=== PATIENT | male | born 1990 | race African-American/Black ===

== ENCOUNTER → 2023-09-10 | Emergency (ER) | payer OTHER, SELFPAY ==
[~2023-09-10] MED LIST: CEFTRIAXONE 1000 MG/VIAL ONE; DOXYCYCLINE 100 MG CAP PO ONE; KETOROLAC 30 MG/ML INJ ONE; LIDOCAINE 1% MPF 2 ML AMPULE ONE; ONDANSETRON 4 MG (ODT) TAB ONE; metroNIDAZOLE 500 MG TABLET ONE
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
[2023-09-11 00:47] LABS: Specific Gravity 1.028 (1.005-1.030); Urine Bacteria None Seen /HPF (<20); Urine Bilirubin NEGATIVE (Negative); Urine Blood Negative (Negative); Urine Clarity Extremely Turbid (Clear); Urine Color Yellow (Yellow); Urine Glucose NEGATIVE (Negative); Urine Mucus Slight /HPF (None Seen); Urine Protein 1+ (Negative); Urine RBC <5 /HPF (None Seen); Urine Urobilinogen 1+ (Normal); Urine pH 5.5 (5.0-7.0)
--- NOTE | 2023-09-11 02:04 | EDPHYS ---
Physician Documentation [facility] Name: Amando Prakash Age: 32 yrs Sex: Male : 1990 Arrival Date: 09/10/2023 Time: 23:39 Bed 11 Private MD: ED Physician Paolo Marie HPI: 09/11 00:13 This 32 yrs old Black Male presents to ER via Unassigned with complaints of Penile sp4 Discharge, Lump under arm. 02:00 82-year-old male presents with discharge from the penis for the last 4 days. Patient sp4 reports that the whitish discharge he does not recall having unprotected sexual intercourse. Patient also has small pimple under the right armpit. . Historical: - Allergies: 00:17 No Known Allergies; kl - Home Meds: 00:17 Biktarvy oral 1 tab daily for HIV infection [Active]; kl - PMHx: 00:17 HIV positive; kl - PSHx: 00:17 None; kl - Immunization history:: Adult Immunizations up to date. - Social history:: Smoking status: Patient denies any tobacco usage or history of. - Family history:: not pertinent. ROS: 02:00 Constitutional: Negative for fever, chills, and weight loss, positive penile discharge, sp4 positive pimple to the right armpit 02:00 All other systems are negative, Exam: 02:00 Constitutional: This is a well developed, well nourished patient who is awake, alert, sp4 and in no acute distress. Head/Face: Normocephalic, atraumatic. Eyes: Pupils equal round and reactive to light, extra-ocular motions intact. Lids and lashes normal. Conjunctiva and sclera are not injected. Cornea within normal limits. Periorbital areas with no swelling, redness, or edema. ENT: Nares patent. No nasal discharge, no septal abnormalities noted. Tympanic membranes are normal and external auditory canals are clear. Oropharynx with no redness, swelling, or masses, exudates, or evidence of obstruction, uvula midline. Mucous membranes moist. Neck: Trachea midline, no thyromegaly or masses palpated, and no cervical lymphadenopathy. Supple, full range of motion without nuchal rigidity, or vertebral point tenderness. Chest/axilla: Normal chest wall appearance and motion. Nontender with no deformity. No lesions are appreciated. Moderate-sized pimple under the right armpit Cardiovascular: Regular rate and rhythm with a normal S1 and S2. No gallops, murmurs, or rubs. Normal PMI, no JVD. No pulse deficits. Respiratory: Lungs have equal breath sounds bilaterally, clear to auscultation and percussion. No rales, rhonchi or wheezes noted. No increased work of breathing, no retractions or nasal flaring. Abdomen/GI: Soft, non-tender, with normal bowel sounds. No distension or tympany. No guarding or rebound. No evidence of tenderness throughout. Back: No spinal tenderness. No costovertebral tenderness. Male : Normal genitalia with no discharge or lesions. Circumcised male with a yellowish urethral discharge Skin: Warm, dry with normal turgor. Normal color with no rashes, no lesions, and no evidence of cellulitis. MS/ Extremity: Pulses equal, no cyanosis. Neurovascular intact. Full, normal range of motion. Neuro: Awake and alert, GCS 15, oriented to person, place, time, and situation. Cranial nerves II-XII grossly intact. Motor strength 5/5 in all extremities. Sensory grossly intact. Psych: Awake, alert, with orientation to person, place and time. Behavior, mood, and affect are within normal limits Vital Signs: 00:12 BP 149 / 100; Pulse 77; Resp 16; Pulse Ox 100% on R/A; Weight 73.03 kg; Height 5 ft. 8 kl in. ; Pain 0/10; 00:12 Body Mass Index 24.48 (73.03 kg, 172.72 cm) kl 00:12 Pain Scale: Adult kl MDM: 00:14 Patient medically screened. sp4 02:00 Differential diagnosis: UTI, urethritis, STD. Data reviewed: vital signs, nurses notes, sp4 lab test result(s), urinalysis, bacteruria. ED course: Was given IM Rocephin, doxycycline and Flagyl. Will discharge her with doxycycline and Flagyl.. 09/11 00:13 Order name: Urinalysis W/Microscopic; Complete Time: 01:52 sp4 09/11 01:15 Order name: Urine Culture EDMS Administered Medications: 02:41 Drug: Rocephin (cefTRIAXone) IM 1 grams IM once Route: IM; Site: left ventrogluteal; vc1 02:58 Follow up: Response: No adverse reaction vc1 02:41 Drug: Doxycycline PO 100 mg PO once Route: PO; vc1 02:58 Follow up: Response: No adverse reaction vc1 02:41 Drug: metroNIDAZOLE PO 500 mg PO once Route: PO; vc1 02:58 Follow up: Response: No adverse reaction vc1 02:41 Drug: Ondansetron PO 4 mg PO once Route: PO; vc1 02:58 Follow up: Response: No adverse reaction vc1 02:41 Drug: Ketorolac IM 30 mg IM once Route: IM; Site: right gluteus; vc1 02:58 Follow up: Response: No adverse reaction vc1 Disposition Summary: 09/11/23 02:03 Discharge Ordered Notes: Abstain from sexual intercourse for the next 2 weeks Location: Home sp4 Problem: new sp4 Symptoms: have improved sp4 Condition: Stable sp4 Diagnosis - Nonspecific urethritis sp4 - UTI/ Urinary tract infection, site not specified sp4 Followup: sp4 - With: Private Physician - When: 7 - 10 days - Reason: Recheck today's complaints Discharge Instructions: - Discharge Summary Sheet sp4 - Urethritis, Adult sp4 Forms: - Patient Portal Instructions sp4 Prescriptions: - Flagyl 500 mg Oral Tablet - take 1 tablet ORAL route every 8 hours for 10 days; 30 tablet; Refills: 0, sp4 Product Selection Permitted - Doxycycline Monohydrate 100 mg Oral Tablet - take 1 tablet ORAL route every 12 hours for 10 days; 20 tablet; Refills: 0, sp4 Product Selection Permitted Signatures: Dispatcher [employer] Otilia Jaramillo, RN Macey Coelho RN RN vc1 Paolo Marie MD MD sp4
--- NOTE | 2023-09-11 02:04 | ER ---
Nurse's Notes [facility] Name: Amando Prakash Age: 32 yrs Sex: Male : 1990 Arrival Date: 09/10/2023 Time: 23:39 Bed 11 Private MD: Diagnosis: Nonspecific urethritis;UTI/ Urinary tract infection, site not specified Presentation: 09/11 00:12 Chief complaint: Patient states: unprotected sex x 1 month prior reports while penile kl discharge began x 4 days ago denies urinary symptoms or pain. Coronavirus screen: Vaccine status: Patient reports receiving the 2nd dose of the covid vaccine. Ebola Screen: Patient negative for fever greater than or equal to 101.5 degrees Fahrenheit, and additional compatible Ebola Virus Disease symptoms. Initial Sepsis Screen: Does the patient meet any 2 criteria? No. Patient's initial sepsis screen is negative. Does the patient have a suspected source of infection? No. Patient's initial sepsis screen is negative. Risk Assessment: Do you want to hurt yourself or someone else? Patient reports no desire to harm self or others. Onset of symptoms was August 29, 2023. 00:12 Method Of Arrival: Ambulatory kl 00:12 Acuity: JOI 4 kl Triage Assessment: 00:17 General: Appears in no apparent distress. comfortable, Behavior is calm, cooperative. kl Pain: Denies pain. Historical: - Allergies: 00:17 No Known Allergies; kl - Home Meds: 00:17 Biktarvy oral 1 tab daily for HIV infection [Active]; kl - PMHx: 00:17 HIV positive; kl - PSHx: 00:17 None; kl - Immunization history:: Adult Immunizations up to date. - Social history:: Smoking status: Patient denies any tobacco usage or history of. - Family history:: not pertinent. Screenin:[facility] ED Fall Risk Assessment (Adult) History of falling in the last 3 months, vc1 including since admission No falls in past 3 months (0 pts) Confusion or Disorientation No (0 pts) Intoxicated or Sedated No (0 pts) Impaired Gait No (0 pts) Mobility Assist Device Used No (0 pt) Altered Elimination No (0 pt) Score/Fall Risk Level 0 - 2 = Low Risk Oriented to surroundings, Maintained a safe environment, Educated pt \T\ family on fall prevention, incl call for assistance when getting out of bed. Abuse screen: Denies threats or abuse. Nutritional screening: No deficits noted. Tuberculosis screening: No symptoms or risk factors identified. Vital Signs: 00:12 BP 149 / 100; Pulse 77; Resp 16; Pulse Ox 100% on R/A; Weight 73.03 kg; Height 5 ft. 8 kl in. ; Pain 0/10; 00:12 Body Mass Index 24.48 (73.03 kg, 172.72 cm) 00:12 Pain Scale: Adult ED Course: 09/10 23:45 Patient arrived in ED. 09/11 00:13 Paolo Marie MD is Attending Physician. sp4 00:16 Triage completed. kl 00:30 Urinalysis W/Microscopic Sent. kl 01:00 Arm band placed on right wrist. vc1 03:00 No provider procedures requiring assistance completed. Patient did not have IV access vc1 during this emergency room visit. 03:00 Provided Education on: safe sex, finish all antibiotics. vc1 Administered Medications: 02:41 Drug: Rocephin (cefTRIAXone) IM 1 grams IM once Route: IM; Site: left ventrogluteal; vc1 02:58 Follow up: Response: No adverse reaction vc1 02:41 Drug: Doxycycline PO 100 mg PO once Route: PO; vc1 02:58 Follow up: Response: No adverse reaction vc1 02:41 Drug: metroNIDAZOLE PO 500 mg PO once Route: PO; vc1 02:58 Follow up: Response: No adverse reaction vc1 02:41 Drug: Ondansetron PO 4 mg PO once Route: PO; vc1 02:58 Follow up: Response: No adverse reaction vc1 02:41 Drug: Ketorolac IM 30 mg IM once Route: IM; Site: right gluteus; vc1 02:58 Follow up: Response: No adverse reaction vc1 Medication: 03:00 VIS not applicable for this client. vc1 Outcome: 02:03 Discharge ordered by . sp4 03:00 Discharged to home ambulatory, vc1 03:00 Condition: good 03:00 Discharge instructions given to patient, Instructed on discharge instructions, follow up and referral plans. medication usage, Demonstrated understanding of instructions, follow-up care, medications, Prescriptions given X 2, 03:01 Patient left the ED. vc1 Signatures: Otilia Prakash RN RN Ruthy Emanuel Vanessa, RN RN vc1 Paolo Marie MD MD sp4
[2023-09-11 06:06] VITALS: BP 149/100; O2SAT 100
== END ==
LOC: ER 23:39
DX: N34.1 Nonspecific urethritis (principal); N39.0 Urinary tract infection, site not specified; Z21 Asymptomatic human immunodeficiency virus [HIV] infection status

== ENCOUNTER → 2023-11-04 | Emergency (ER) | payer OTHER ==
[~2023-11-04] MED LIST changes: -CEFTRIAXONE 1000 MG/VIAL ONE; -DOXYCYCLINE 100 MG CAP PO ONE; -KETOROLAC 30 MG/ML INJ ONE; -LIDOCAINE 1% MPF 2 ML AMPULE ONE; +LIDOCAINE 2% W/EPI 1:200,000 MPF 20 ML VIAL IM ONE; -ONDANSETRON 4 MG (ODT) TAB ONE; -metroNIDAZOLE 500 MG TABLET ONE
--- OUTSIDE RECORDS SUMMARY | 2023-11-04 09:34 | XMS REPORT | Continuity of Care Document ---
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 7.2.727879_[id number] [facility]
--- NOTE | 2023-11-04 10:22 | ER ---
Nurse's Notes [facility] Name: Amando Prakash Age: 32 yrs Sex: Male : 1990 Arrival Date: 11/04/2023 Time: 09:30 Bed 12 Private MD: Diagnosis: Cutaneous abscess of right axilla Presentation: 11/03 09:49 Chief complaint: Patient states: Abscess to R armpit area for 3 days, just getting ll1 worse. No fever or drainage. Coronavirus screen: Client denies travel out of the [place] in the last 14 days. At this time, the client does not indicate any symptoms associated with coronavirus-19. Ebola Screen: Patient denies travel to an Ebola-affected area in the 21 days before illness onset. Initial Sepsis Screen: Does the patient meet any 2 criteria? No. Patient's initial sepsis screen is negative. Does the patient have a suspected source of infection? No. Patient's initial sepsis screen is negative. Risk Assessment: Do you want to hurt yourself or someone else? Patient reports no desire to harm self or others. Onset of symptoms was November 02, 2023. 09:49 Method Of Arrival: Ambulatory ll1 09:49 Acuity: JOI 3 ll1 Historical: - Allergies: 09:49 No Known Allergies; ll1 - PMHx: 09:49 HIV positive; ll1 - Immunization history:: Adult Immunizations up to date. - Social history:: Smoking status: Patient denies any tobacco usage or history of. - Family history:: not pertinent. - Hospitalizations: : No recent hospitalization is reported. Screenin:01 [facility] ED Fall Risk Assessment (Adult) History of falling in the last 3 months, ll1 including since admission No falls in past 3 months (0 pts) Confusion or Disorientation No (0 pts) Intoxicated or Sedated No (0 pts) Impaired Gait No (0 pts) Mobility Assist Device Used No (0 pt) Altered Elimination No (0 pt) Score/Fall Risk Level 0 - 2 = Low Risk Maintained a safe environment, Hourly rounding (assess needs \T\ fall precautionary measures) done. Abuse screen: Denies threats or abuse. Nutritional screening: No deficits noted. Tuberculosis screening: No symptoms or risk factors identified. Assessment: 10:00 General: Appears uncomfortable, Behavior is calm, cooperative, appropriate for age. ll1 Pain: Complains of pain in R armpit Quality of pain is described as aching. Derm: Abscess located on R armpit Reports pain and swelling to R axilla. 10:31 Reassessment: No changes from previously documented assessment. Patient and/or family ll1 updated on plan of care and expected duration. Pain level reassessed. Patient is alert, oriented x 3, equal unlabored respirations, skin warm/dry/pink. Vital Signs: 09:49 BP 118 / 89; Pulse 80; Resp 16; Temp 98.6; Pulse Ox 100% ; Pain 10/10; ll1 10:34 BP 118 / 81; Pulse 81; Resp 16; Temp 98.5; Pulse Ox 99% on R/A; Pain 2/10; ll1 09:49 Pain Scale: Adult ll1 10:34 Pain Scale: Adult ll1 ED Course: 09:31 Patient arrived in ED. mr 09:33 Jorge Alberto Monge MD is Attending Physician. rn 09:49 Arm band placed on. ll1 09:51 Triage completed. ll1 10:01 Patient has correct armband on for positive identification. Bed in low position. Call ll1 light in reach. Provided Education on: ER procedures and process. Cardiac monitoring not applicable on this patient. 10:21 Willem Hannah MD is Referral Physician. rn 10:30 Patient did not have IV access during this emergency room visit. Wound care: to s/p I\T\D ll1 located on R axilla was dressed with 4X4s, secured with paper tape. 10:34 No provider procedures requiring assistance completed. ll1 Administered Medications: 10:00 Drug: Lidocaine-Epinephrine Infiltration -1%: (1:100,000) 1 vials 20 ml Infiltration ll1 once; to bedside {Note: administered by Dr. Monge.} Volume: 20 ml; Route: Infiltration; 10:34 Follow up: Response: No adverse reaction ll1 Medication: 10:01 VIS not applicable for this client. ll1 Outcome: 10:21 Discharge ordered by . rn 10:34 Discharged to home ambulatory, ll1 10:34 Condition: stable 10:34 Discharge instructions given to patient, Instructed on discharge instructions, follow up and referral plans. no drinking with medication, no driving heavy equipment, medication usage, wound care, Demonstrated understanding of instructions, follow-up care, medications, wound care, Prescriptions given X 3, 10:35 Patient left the ED. ll1 Signatures: Chanel Vieira Reg Reg mr Nieto, Roman, MD MD rn Lewis, Lynsay, RN RN ll1
--- NOTE | 2023-11-04 10:22 | EDPHYS ---
Physician Documentation [facility] Name: Amando Prakash Age: 32 yrs Sex: Male : 1990 Arrival Date: 11/04/2023 Time: 09:30 Bed 12 Private MD: ED Physician Jorge Alberto Monge HPI: 11/03 09:59 This 32 yrs old Black Male presents to ER via Ambulatory with complaints of abscess. rn 09:59 The patient presents with an abscess of the Right axilla. Onset: The symptoms/episode rn began/occurred 2 day(s) ago. Possible cause(s): unknown. Modifying factors: the symptoms are alleviated by nothing, the symptoms are aggravated by touching. Severity of symptoms: At their worst the symptoms were moderate, in the emergency department the symptoms are unchanged. The patient has not experienced similar symptoms in the past. Historical: - Allergies: 09:49 No Known Allergies; ll1 - PMHx: 09:49 HIV positive; ll1 - Immunization history:: Adult Immunizations up to date. - Social history:: Smoking status: Patient denies any tobacco usage or history of. - Family history:: not pertinent. - Hospitalizations: : No recent hospitalization is reported. ROS: 09:59 Constitutional: Negative for fever, chills, and weight loss, Skin: Positive for right rn axillary abscess and swollen area Exam: 09:59 Constitutional: This is a well developed, well nourished patient who is awake, alert, rn and in no acute distress. MS/ Extremity: Pulses equal, no cyanosis. Neurovascular intact. 3 cm area of fluctuance right axilla with erythema and warmth. Mild axillary lymphadenopathy present. Vital Signs: 09:49 BP 118 / 89; Pulse 80; Resp 16; Temp 98.6; Pulse Ox 100% ; Pain 10/10; ll1 10:34 BP 118 / 81; Pulse 81; Resp 16; Temp 98.5; Pulse Ox 99% on R/A; Pain 2/10; ll1 09:49 Pain Scale: Adult ll1 10:34 Pain Scale: Adult ll1 Procedures: 10:20 I \T\ D: Incision and drainage was performed for an abscess of the right axilla. Prepped rn with Betadine, Anesthetized with ml's 2% Lidocaine with epinephrine. 3 ml's 2% Lidocaine with epinephrine. Incised with #11 blade. Drained moderate amount purulent fluid. bloody fluid. Packed with iodoform gauze, Dressing: sterile 4x4 gauze, the patient tolerated the procedure well. MDM: 09:33 Patient medically screened. rn 10:20 Differential diagnosis: abscess, cellulitis. Data reviewed: vital signs, nurses notes, rn and as a result, I will discharge patient. Care significantly affected by the following chronic conditions: HIV. Counseling: I had a detailed discussion with the patient and/or guardian regarding the historical points, exam findings, and any diagnostic results supporting the discharge/admit diagnosis, the need for outpatient follow up, to return to the emergency department if symptoms worsen or persist or if there are any questions or concerns that arise at home. Response to treatment: the patient's symptoms have markedly improved after treatment, and as a result, I will discharge patient. Special discussion: I discussed with the patient/guardian in detail that at this point there is no indication for admission to the hospital. It is understood, however, that if the symptoms persist or worsen the patient needs to return immediately for re-evaluation. 11/03 09:54 Order name: Incision \T\ Drainage Setup; Complete Time: 09:59 rn Administered Medications: 10:00 Drug: Lidocaine-Epinephrine Infiltration -1%: (1:100,000) 1 vials 20 ml Infiltration ll1 once; to bedside {Note: administered by Dr. Monge.} Volume: 20 ml; Route: Infiltration; 10:34 Follow up: Response: No adverse reaction ll1 Disposition Summary: 11/04/23 10:21 Discharge Ordered Notes: Location: Home rn Problem: new rn Symptoms: have improved rn Condition: Stable rn Diagnosis - Cutaneous abscess of right axilla rn Followup: rn - With: Willem Hannah MD - When: 1 week - Reason: Recheck today's complaints, Re-evaluation by your physician Discharge Instructions: - Discharge Summary Sheet rn - Skin Abscess rn - Incision and Drainage rn - Wound Packing rn - Incision and Drainage, Care After rn Forms: - Medication Reconciliation Form rn - Thank You Letter rn - Antibiotic actuarial internship - Prescription Opioid Use rn - Patient Portal Instructions rn - Leadership Thank You Letter rn Prescriptions: - Cephalexin 500 mg Oral Capsule - take 1 capsule ORAL route every 12 hours for 10 days; 20 capsule; Refills: 0, rn Product Selection Permitted - Tramadol 50 mg Oral Tablet - take 1 tablet ORAL route every 8 hours as needed; 12 tablet; Refills: 0, rn Product Selection Permitted - Bactrim DS 800-160 mg Oral Tablet - take 1 tablet ORAL route every 12 hours for 10 days; 20 tablet; Refills: 0, rn Product Selection Permitted Signatures: Jorge Alberto Monge MD MD rn Lewis, Lynsay, RN RN ll1
[2023-11-04 11:00] VITALS: BP 118/81; TEMP 98.5; O2SAT 99
== END ==
LOC: ER 09:30
PROC: 0H9CXZZ Drainage of Left Upper Arm Skin, External Approach (ICD-10-PCS; principal; 2023-11-04)
DX: L02.411 Cutaneous abscess of right axilla (principal); Z21 Asymptomatic human immunodeficiency virus [HIV] infection status

== ENCOUNTER 2024-05-21 22:53 | Emergency (ER) | payer OTHER ==
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
[2024-05-21] MEDS ORDERED: predniSONE 20 MG TAB ONE (23:15)
[2024-05-21] MEDS ORDERED: KETOROLAC 10 MG TAB ONE (23:15)
[2024-05-21] MEDS ORDERED: ACETAMINOPHEN 500 MG TAB ONE (23:16)
[2024-05-21] MEDS ORDERED: methocarbamoL 750 MG TAB ONE (23:16)
--- NOTE | 2024-05-22 00:24 | EDPHYS ---
Physician Documentation [facility] Name: Amando Prakash Age: 33 yrs Sex: Male : 1990 Arrival Date: 05/21/2024 Time: 22:53 Bed 11 Private MD: ED Physician Paolo Marie HPI: 05/21 22:55 This 33 yrs old Black Male presents to ER via Unassigned with complaints of Foot Pain. sp4 05/22 05:04 33-year-old male presents with acute pain midfoot on the left side. Had any injury. sp4 Historical: - Allergies: 05/21 23:07 No Known Allergies; dd2 - PMHx: 23:07 HIV positive; dd2 - PSHx: 23:07 None; dd2 - Immunization history:: Adult Immunizations up to date. - Infectious Disease History:: Denies. - Social history:: Smoking status: Patient denies any tobacco usage or history of. - Family history:: not pertinent. ROS: 05/22 05:04 Constitutional: Negative for fever, chills, and weight loss, positive today for left sp4 midfoot pain All other systems are negative, Exam: 05:04 Constitutional: This is a well developed, well nourished patient who is awake, alert, sp4 and in no acute distress. Head/Face: Normocephalic, atraumatic. Eyes: Pupils equal round and reactive to light, extra-ocular motions intact. Lids and lashes normal. Conjunctiva and sclera are not injected. Cornea within normal limits. Periorbital areas with no swelling, redness, or edema. ENT: Nares patent. No nasal discharge, no septal abnormalities noted. Tympanic membranes are normal and external auditory canals are clear. Oropharynx with no redness, swelling, or masses, exudates, or evidence of obstruction, uvula midline. Mucous membranes moist. Neck: Trachea midline, no thyromegaly or masses palpated, and no cervical lymphadenopathy. Supple, full range of motion without nuchal rigidity, or vertebral point tenderness. Chest/axilla: Normal chest wall appearance and motion. Nontender with no deformity. No lesions are appreciated. Cardiovascular: Regular rate and rhythm with a normal S1 and S2. No gallops, murmurs, or rubs. Normal PMI, no JVD. No pulse deficits. Respiratory: Lungs have equal breath sounds bilaterally, clear to auscultation and percussion. No rales, rhonchi or wheezes noted. No increased work of breathing, no retractions or nasal flaring. Abdomen/GI: Soft, with normal bowel sounds. No distension or tympany. No guarding or rebound. No evidence of tenderness throughout. Back: No spinal tenderness. No costovertebral tenderness. Skin: Warm, dry with normal turgor. Normal color with no rashes, no lesions, and no evidence of cellulitis. MS/ Extremity: Pulses equal, no cyanosis. Neurovascular intact. Full, normal range of motion. Neuro: Awake and alert, GCS 15, oriented to person, place, time, and situation. Cranial nerves II-XII grossly intact. Motor strength 5/5 in all extremities. Sensory grossly intact. Psych: Awake, alert, with orientation to person, place and time. Behavior, mood, and affect are within normal limits Vital Signs: 05/21 23:05 BP 124 / 74; Pulse 79; Resp 16; Temp 98.5(O); Pulse Ox 100% on R/A; Weight 77.56 kg; dd2 Height 0 ft. 2 in. ; Pain 5/10; 23:40 BP 134 / 72; Pulse 82; Resp 16; Pulse Ox 98% ; dd2 10 00:44 BP 121 / 78; Pulse 75; Resp 17 S; Pulse Ox 100% on R/A; ha1 05/21 23:05 Body Mass Index 99154.45 (77.56 kg, 7 cm) dd2 05/21 23:05 Pain Scale: Adult dd2 Solomon Coma Score: 05:04 Eye Response: spontaneous(4). Motor Response: obeys commands(6). Verbal Response: sp4 oriented(5). Total: 15. MDM: 05/21 23:30 Patient medically screened. sp4 05/22 00:22 ED course: Clinical Indication: Bed Name: 11; PAIN Comparison: None FINDINGS: The 3 sp4 views of the left foot show normal alignment without acute fractures or dislocations. The toe interphalangeal joints, tarsometatarsal joints, metatarsophalangeal joints and subtalar joint are unremarkable. The talar dome is normal. There is no soft tissue gas or osseous erosive changes noted. There are no radiopaque foreign bodies in the soft tissues. There is no soft tissue swelling. If there is further concern, recommend follow-up radiographs or MRI for complete assessment. IMPRESSION: 1. No acute fractures or dislocation of the left foot. . 05:04 Differential diagnosis: fracture, foreign body, arthritis, gout, cellulitis. Data sp4 reviewed: vital signs, nurses notes, radiologic studies, plain films. ED course: stable for discharge home.. 05/21 23:05 Order name: Foot Left 3 View XRAY sp4 Administered Medications: 05/21 23:19 Drug: Ketorolac PO 10 mg PO once Route: PO; dd2 05/22 00:00 Follow up: Response: No adverse reaction; Marked relief of symptoms; Pain is decreased ha1 05/21 23:19 Drug: Methocarbamol PO 750 mg PO once Route: PO; dd2 05/22 00:00 Follow up: Response: No adverse reaction; Marked relief of symptoms; Pain is decreased ha1 05/21 23:19 Drug: Acetaminophen PO 1000 mg PO once Route: PO; dd2 05/22 00:00 Follow up: Response: No adverse reaction; Marked relief of symptoms; Pain is decreased ha1 05/21 23:19 Drug: predniSONE PO 60 mg PO once Route: PO; dd2 05/22 00:00 Follow up: Response: No adverse reaction; Marked relief of symptoms ha1 Disposition Summary: 05/22/24 00:24 Discharge Ordered Notes: Location: Home sp4 Problem: new sp4 Symptoms: have improved sp4 Condition: Stable sp4 Diagnosis - Acute left foot pain, Acute overuse injury left foot sp4 Followup: sp4 - With: Private Physician - When: As needed - Reason: Recheck today's complaints Discharge Instructions: - Discharge Summary Sheet sp4 - Foot Sprain sp4 Forms: - Patient Portal Instructions sp4 Prescriptions: - naproxen 500 mg Oral tablet - take 1 tablet ORAL route 3 times per day PRN pain; 60 tablet; Refills: 0, sp4 Product Selection Permitted Signatures: Dispatcher [employer] EDPaolo Mejia MD MD sp4 ANTONINO WITT RN RN dd2 Brooklyn Ramos RN ha1 Corrections: (The following items were deleted from the chart) 05/21 23 23:05 Foot Left 3 View+RAD.RAD.BRZ ordered. EDMS EDMS
--- NOTE | 2024-05-22 00:24 | ER ---
Nurse's Notes [facility] Name: Amando Prakash Age: 33 yrs Sex: Male : 1990 Arrival Date: 05/21/2024 Time: 22:53 Bed 11 Private MD: Diagnosis: Acute left foot pain, Acute overuse injury left foot Presentation: 05/21 23:05 Chief complaint: Patient states: Pt c/o Lt foot pain and swelling x4 days. Coronavirus dd2 screen: At this time, the client does not indicate any symptoms associated with coronavirus-19. Ebola Screen: No symptoms or risks identified at this time. Initial Sepsis Screen: Does the patient meet any 2 criteria? No. Patient's initial sepsis screen is negative. Does the patient have a suspected source of infection? No. Patient's initial sepsis screen is negative. Risk Assessment: Do you want to hurt yourself or someone else? Patient reports no desire to harm self or others. Onset of symptoms was May 18, 2024. 23:05 Method Of Arrival: Ambulatory dd2 23:05 Acuity: JOI 4 dd2 Triage Assessment: 23:07 General: Appears in no apparent distress. Behavior is calm, cooperative, appropriate dd2 for age. Pain: Complains of pain in dorsum of right foot and right first toe Pain currently is 5 out of 10 on a pain scale. EENT: No deficits noted. No signs and/or symptoms were reported regarding the EENT system. Neuro: No deficits noted. Level of Consciousness is awake, alert, obeys commands, Oriented to person, place, time, situation, Appropriate for age. Cardiovascular: No deficits noted. Patient's skin is warm and dry. Respiratory: No deficits noted. Airway is patent Respiratory effort is even, unlabored, Respiratory pattern is regular, symmetrical. GI: No deficits noted. No signs and/or symptoms were reported involving the gastrointestinal system. : No deficits noted. No signs and/or symptoms were reported regarding the genitourinary system. Derm: No deficits noted. No signs and/or symptoms reported regarding the dermatologic system. Musculoskeletal: Circulation, motion, and sensation intact. Range of motion: intact in all extremities, Reports pain in dorsum of right foot and right first toe since 05/18/2024. Pain is 5 out of 10 on a pain scale. Historical: - Allergies: 23:07 No Known Allergies; dd2 - PMHx: 23:07 HIV positive; dd2 - PSHx: 23:07 None; dd2 - Immunization history:: Adult Immunizations up to date. - Infectious Disease History:: Denies. - Social history:: Smoking status: Patient denies any tobacco usage or history of. - Family history:: not pertinent. Screenin:10 [facility] ED Fall Risk Assessment (Adult) History of falling in the last 3 months, dd2 including since admission No falls in past 3 months (0 pts) Confusion or Disorientation No (0 pts) Intoxicated or Sedated No (0 pts) Impaired Gait No (0 pts) Mobility Assist Device Used No (0 pt) Altered Elimination No (0 pt) Score/Fall Risk Level 0 - 2 = Low Risk Oriented to surroundings, Maintained a safe environment, Hourly rounding (assess needs \T\ fall precautionary measures) done. Abuse screen: Denies threats or abuse. Nutritional screening: No deficits noted. Tuberculosis screening: No symptoms or risk factors identified. Assessment: 23:10 Reassessment: SEE TRIAGE ASSESSMENT FOR FULL ASSESSENT. dd2 05/22 00:44 Reassessment: Patient and/or family updated on plan of care and expected duration. Pain ha1 level reassessed. Patient is alert, oriented x 3, equal unlabored respirations, skin warm/dry/pink. Patient states feeling better. Patient states symptoms have improved. Vital Signs: 05/21 23:05 BP 124 / 74; Pulse 79; Resp 16; Temp 98.5(O); Pulse Ox 100% on R/A; Weight 77.56 kg; dd2 Height 0 ft. 2 in. ; Pain 5/10; 23:40 BP 134 / 72; Pulse 82; Resp 16; Pulse Ox 98% ; dd2 05/22 00:44 BP 121 / 78; Pulse 75; Resp 17 S; Pulse Ox 100% on R/A; ha1 05/21 23:05 Body Mass Index 88889.45 (77.56 kg, 7 cm) dd2 05/21 23:05 Pain Scale: Adult dd2 [place] Coma Score: 05:04 Eye Response: spontaneous(4). Motor Response: obeys commands(6). Verbal Response: sp4 oriented(5). Total: 15. ED Course: 05/21 22:53 Patient arrived in ED. am2 22:55 Paolo Marie MD is Attending Physician. sp4 23:00 ANTONINO WITT RN is Primary Nurse. dd2 23:07 Triage completed. dd2 23:07 Arm band placed on right wrist. Patient placed in an exam room, on a stretcher, on dd2 pulse oximetry. 23:10 Patient has correct armband on for positive identification. Bed in low position. Call dd2 light in reach. Side rails up X 1. Provided Education on: CALL LIGHT, MEDICATIONS, PROCEDURES. Client placed on continuous cardiac and pulse oximetry monitoring. NIBP monitoring applied. Door closed. Noise minimized. Warm blanket given. Verbal reassurance given. 23:10 No provider procedures requiring assistance completed. Patient did not have IV access dd2 during this emergency room visit. 23:32 Foot Left 3 View XRAY In Process Unspecified. EDMS Administered Medications: 23:19 Drug: Ketorolac PO 10 mg PO once Route: PO; dd2 05/22 00:00 Follow up: Response: No adverse reaction; Marked relief of symptoms; Pain is decreased ha1 05/21 23:19 Drug: Methocarbamol PO 750 mg PO once Route: PO; dd2 05/22 00:00 Follow up: Response: No adverse reaction; Marked relief of symptoms; Pain is decreased ha1 05/21 23:19 Drug: Acetaminophen PO 1000 mg PO once Route: PO; dd2 05/22 00:00 Follow up: Response: No adverse reaction; Marked relief of symptoms; Pain is decreased ha1 05/21 23:19 Drug: predniSONE PO 60 mg PO once Route: PO; dd2 05/22 00:00 Follow up: Response: No adverse reaction; Marked relief of symptoms ha1 Medication: 05/21 23:10 VIS not applicable for this client. dd2 Outcome: 05/22 00:24 Discharge ordered by . sp4 00:44 Discharged to home ambulatory, ha1 00:44 Condition: stable 00:44 Discharge instructions given to patient, Instructed on discharge instructions, follow up and referral plans. medication usage, Demonstrated understanding of instructions, follow-up care, medications, Prescriptions given X 1, 00:46 Patient left the ED. ha1 Signatures: Dispatcher [employer] EDMS Giuliana Mata am2 Brooklyn Ramos RN RN ha1 Paolo Marie MD MD sp4 ANTONINO WITT RN RN dd2
--- NOTE | 2024-05-22 00:41 | RAD REPORT ---
Clinical Indication: Bed Name: 11; PAIN Comparison: None FINDINGS: The 3 views of the left foot show normal alignment without acute fractures or dislocations. The toe i nterphalangeal joints, tarsometatarsal joints, metatarsophalangeal joints and subtalar joint are unremarkable. The talar dom e is normal. There is no soft tissue gas or osseous erosive changes noted. There are no radiopaque foreign bodies in the soft tissu es. There is no soft tissue swelling. If there is further concern, recommend follow-up radiographs or MRI for complete assessment. IMPRESSION: 1. No acute fractures or dislocation of the left foot. Electronically signed by: Marco A Arora MD 05/22/2024 12:07 AM CDT RP Due to temporary technical issues with the [employer] reporting system, reports are being enrico d by the in-house radiologist without review as a courtesy to ensure prompt reporting the interpreting radiologist is fully responsible for the content of the report. Transcribed Date/Time: 05/22/2024 12:41 AM
[2024-05-22 01:40] VITALS: TEMP 98.5
[2024-05-22 01:42] VITALS: BP 121/78; O2SAT 100
== END 2024-05-22 00:46 | disposition home or self-care (01) ==
LOC: ER 22:53
DX: S99.822A Other specified injuries of left foot, initial encounter (principal)
CPT/HCPCS: 73630; 99284; J7512